=== PATIENT | female | born 1940 | race Caucasian/White ===

== ENCOUNTER → 2016-12-08 | Outpatient (CLI) | payer MEDICARE, BC ==
[~2016-12-08] MED LIST: ALB0.5V INH; ASP325T PO; ASPI-266 PO; ATOR40TA; ATOR80TA PO; CATHETER FLUSH 10 ML SYR IV PRN; CEFD300C PO; CHOL100011 PO; CLD600T PO; CLOP75TA PO; CYAN100071 PO; FENO135C PO; FOLI0.4T2 PO; FOLI0.8T PO; FURO20TA4 PO; GLYB1.253 PO; GLYB2.5T4 PO; HYDR-3816 PO; HYZAAR; LEVO75TA6 PO; LOSA1TAB15 PO; LVT.025T PO; LVT.05T PO; LVT.1T PO; METO-272 PO; METO25TA PO; MULT-608 PO; NIA500ERT PO; OMEG1CAP58 PO; PGLT30T; PNT40TEC PO; POTA10CA43 PO; REGADENOSON 0.4 MG/5 ML SYR (LEXISCAN) IV ONE; SIMV80TA3 PO; SITA100T PO; TRAV5DRO OU; TRAV5DRO2 OP
[2016-12-08 12:48] VITALS: BP 155/79
--- NOTE | 2016-12-09 08:06 | ECHOCARDIOGRAPHY REPORT ---
PROCEDURE PHYSICIAN: SERGO ENCARNACION DATE OF PROCEDURE: 12/08/2016 TWO DIMENSIONAL ECHOCARDIOGRAM REPORT PRIMARY PHYSICIAN: OTHER PHYSICIAN: REFERRING PHYSICIAN: Dr. Ana Cristina Gonzalez ORDERING PHYSICIAN: INDICATION FOR THE PROCEDURE: Coronary artery disease. MEASUREMENTS DERIVED VALUES LV DIAMETER (LAX) NORMALS NORMALS Diastolic 4.6 (3.6-5.2) Eject. Fract. 60% (60%+/-6%) Systolic (2.3-3.9) Diastolic Vol. % Shortening (0.22-0.42) Systolic Vol. Aortic Root IVS THICKNESS Diastolic 1.3 (0.6-1.1) LVPW THICKNESS Diastolic 1.3 (0.6-1.1) LA DIAMETER Systolic 4.1 (2.1-3.7) FINDINGS: 1. Technical quality is good. 2. The left ventricle is normal in size with normal contractility. Systolic function appeared to be normal. Estimated ejection fraction 60%. 3. The left atrium is mildly dilated. No clot or thrombus were seen within the left atrium. 4. The right atrium and right ventricle are normal in size. No clot or thrombus were seen within the right side. 5. Mitral valve is normal in morphology with mild mitral regurgitation noted by color Doppler flow. No mitral valve prolapse. No mitral valve stenosis. 6. Aortic valve is trileaflet with normal opening and closing pattern. No significant aortic stenosis or regurgitation was seen. 7. Tricuspid valve is normal in morphology with mild tricuspid regurgitation noted by color Doppler flow. Doppler across tricuspid valve estimated pulmonary artery pressure of 27+ right atrial pressure. 8. Pulmonic valve is functioning normally. 9. No pericardial effusion. CONCLUSION: 1. Normal left ventricular size with mild left ventricular hypertrophy noted diffusely. Systolic function appeared to be normal. Estimated ejection fraction 60%. 2. Mildly dilated left atrium. 3. Mild mitral and tricuspid regurgitation. 4. Estimated pulmonary artery pressure of 35 mmHg. Job ID: [id number] Dictated Date: 12/08/2016 15:49:56 Sergeant At Arms Date: 12/09/2016 07:49:20 / shameka
--- NOTE | 2016-12-09 09:32 | STRESS TEST ---
PROCEDURE PHYSICIAN: SERGO ENCARNACION DATE OF PROCEDURE: 12/08/2016 LEXISCAN MYOVIEW STRESS TEST REPORT: REFERRING PHYSICIAN: Dr. Gonzalez. INDICATION FOR THE PROCEDURE: 1. Coronary artery disease. 2. Hypertension. BASELINE HEART RATE: 60 BASELINE BLOOD PRESSURE: 155/79 BASELINE EKG: Sinus rhythm with occasional PVCs. IN SUMMARY: The patient was injected with 10.93 mCi of technetium 99 Myoview and the resting images were obtained. Then the patient received 0.4 mg of Lexiscan followed by 29.7 mCi of technetium 99 Myoview. Throughout the test there were no EKG changes. The resting and stress images were reviewed and compared in the short axis, horizontal long axis, and vertical long axis views. Review of the images showed breast attenuation with reversible ischemia involving the mid to apical anterolateral wall and inferolateral wall. SSS is 10, SDS 6, TID value 1.02. On the gated images, the left ventricle appeared to be normal size with normal contractility. Calculated ejection fraction 57%. IN CONCLUSION: 1. The patient tolerated Lexiscan well. 2. Breast attenuation affecting the quality of the images with reversible ischemia involving the mid to apical anterolateral wall and inferolateral wall. 3. Normal left ventricular size with normal contractility. Calculated ejection fraction 57%. Job ID: [id number] Dictated Date: 12/08/2016 16:18:32 Roll Coverer Date: 12/09/2016 09:28:24 / shameka
== END ==
LOC: CARD 09:35
PROVIDERS: ATTEND Physician Assistant
DX: I25.10 Atherosclerotic heart disease of native coronary artery without angina pectoris (principal); I65.23 Occlusion and stenosis of bilateral carotid arteries; I10 Essential (primary) hypertension; E78.2 Mixed hyperlipidemia
CPT/HCPCS: 78452; 93017; 93306

== ENCOUNTER 2017-03-30 10:42 | Day surgery (SDC) | payer MEDICARE, BC ==
[~2017-03-30] VITALS: Ht 167.6 cm; Wt 103.7 kg
[2017-03-30] VITALS (11 sets, daily range): BP systolic 121–163; BP diastolic 58–77
[~2017-03-30 10:42] MED LIST changes: -CATHETER FLUSH 10 ML SYR IV PRN; -GLYB2.5T4 PO; -REGADENOSON 0.4 MG/5 ML SYR (LEXISCAN) IV ONE
[2017-03-30] MEDS ORDERED: NS IV 1000 ML 1,000 ML ONE (10:46)
[2017-03-30] MEDS ORDERED: LIDOCAINE 1% INJ 20 ML (XYLOCAINE) VIAL ONE (10:46)
[2017-03-30] MEDS ORDERED: HEParin (CATH LAB) 2,000 ML IV ONE (10:46)
[2017-03-30] MEDS ORDERED: NS IV 1000 ML 1,000 ML IV SCH ×2 (11:15→13:37)
[2017-03-30 11:22] LABS: MEAN PLATELET VOLUME 11.5 FL (7.4-10.4); RED BLOOD COUNT 3.77 10^6/uL (4.35-5.85); WHITE BLOOD COUNT 5.4 10^3/uL (4.3-11.0)
[2017-03-30 11:26] LABS: PROTHROMBIN TIME PATIENT 13.3 SEC (12.2-14.7)
--- NOTE | 2017-03-30 11:36 | Diagnostic Imaging Report ---
INDICATION: Coronary artery disease, preop for catheterization. PA chest obtained at 11:17 a.m. and compared to 10/30/14. FINDINGS: Patient has had previous sternotomy. The heart is borderline in size. Aorta is tortuous. Patient has had previous coronary bypass. There is no acute infiltrate or pneumothorax or pleural fluid. IMPRESSION: Poststernotomy change with borderline heart size. No focal infiltrate or pneumothorax or pleural fluid. Dictated by: Dictated on workstation # [id number]
[2017-03-30 11:38] LABS: ALBUMIN 4.3 G/DL (3.2-4.5); BILIRUBIN,TOTAL 0.5 MG/DL (0.1-1.0); CALCIUM 9.7 MG/DL (8.5-10.1); CREATININE SERUM 1.1 MG/DL (0.60-1.30); POTASSIUM 4.3 MMOL/L (3.6-5.0); TOTAL PROTEIN 7.8 G/DL (6.4-8.2)
[2017-03-30] MEDS ORDERED: GLYB2.5T4 PO (11:41)
--- NOTE | 2017-03-30 12:03 | Cardiac Procedure Note-CS/ASA ---
Pre-Procedure Note Pre-Op Procedure Note H&P Reviewed The H&P was reviewed, patient examined and no changes noted. Date H&P Reviewed: March 30, 2017 Time H&P Reviewed: 12:03 Conscious Sedation Pre-Proced Time Reviewed: 12:03 ASA Class: 3 Airway Mallampati Classification: ([place] appropriate class) I. II. III, IV Lungs Heart ASA score ASA 1: a normal healthy patient ASA 2: a patient with a mild systemic disease (mid diabetes, controlled hypertension, obesity x ASA 3: a patient with a severe systemic disease that limits activity (angina , COPD, prior Myocardial infarction) ASA 4: a patient with an incapacitating disease that is a constant threat to life (CHF, renal failure) ASA 5: a moribund patient not expected to survive 24 hrs. (ruptured aneurysm) ASA 6: a declared brain patient whose organs are being harvested. For emergent operations, add the letter E after the classification Grade 3 Sedation Plan: Analgesia, Amnesia, Plan communicated to team members, Discussed options with patient/fam, Discussed risks with patient/fam Note The patient is an appropriate candidate to undergo the planned procedure, sedation, and anesthesia. The patient immediately re-assessed prior to indication. SERGO ENCARNACION MD March 30, 2017 12:03
[2017-03-30] MEDS ORDERED: fentaNYL INJECTION 100 MCG/2 ML AMP ONE (12:34)
[2017-03-30] MEDS ORDERED: MIDAZOLAM 5 MG/5 ML (VERSED) VIAL ONE (12:34)
[2017-03-30] MEDS ORDERED: PATIENT MAY USE OWN MEDS, ALL PO SCH (13:45)
--- NOTE | 2017-03-30 14:40 | Discharge Inst-Post CATH ---
Discharge Inst-CATH Post Cardiac Cath D/C Inst Follow Up/Plan Appointment with Dr Rogel's office in 2 weeks CARDIAC CATH DISCHARGE INSTRUCTIONS *Hold Metformin for 48 hours post heart cath. ACTIVITY * Go Home directly and rest. * Limit activity of the leg (or wrist if it was used) for 7 days including aerobics, swimming, jogging, bicycling, etc. * Restrict stair-climbing for 7 days if possible, if not, climb up with your non -cath leg, then bring together on the same step. * Avoid lifting, pushing, pulling or excessive movement of the affected extremity for 7 days. * Customary sexual activity may be resumed after 2 days-use caution not to use a position that strains or causes pain to the affected extremity. * No driving for 24 hours. * NO SMOKING. * Avoid straining for bowel movements for 7 days. * Gentle walking on level ground is allowed. * Returning to work will depend on the type of procedure and the results. Your doctor will discuss this with you. CALL YOUR DOCTOR FOR ANY OF THE FOLLOWING: *If bleeding from the puncture site occurs- Apply gentle pressure to site with clean cloth and call your doctor or EMS. * If a knot or lump forms under the skin, increases in size, or causes pain. * If bruising appears to be worsening or moving further down your leg instead of disappearing. * Temperature above 101 F. CARE OF YOUR GROIN INCISION; * Bruising or purple discoloration of the skin near the puncture site is common. * You may shower only, no bathtub bathing for 5 days. Be careful to avoid slipping as your leg may feel stiff. * If a closure device was used on your femoral artery, please see the attached guide regarding care of the device and your leg. * REMOVE the dressing from your groin the next day after your procedure in the shower. CARE OF YOUR WRIST INCISION; * Bruising or purple discoloration of the skin near the puncture site is common. * You may shower. * DO NOT submerge wrist. * Remove dressing in 24 hours. SERGO ROGEL MD March 30, 2017 14:40
--- NOTE | 2017-03-31 08:36 | CARDIAC CATHETERIZATION ---
DATE OF SERVICE: 03/30/2017 PROCEDURE: CARDIAC CATHETERIZATION REFERRING PROVIDER: WILLIAMS Velez. BRIEF HISTORY: The patient is a 76-year-old lady with history of coronary artery disease, history of CABG, peripheral arterial disease. The patient had an abnormal stress test. She was scheduled for left heart catheterization, possible PTCA. PROCEDURE NOTE: After explaining the procedure to the patient all pros and cons were explained and all questions were answered. The patient signed a consent and then we proceeded with cardiac catheterization. The right groin was prepped in a sterile fashion. Local anesthesia was applied to the right groin. I had difficulty advancing the sheath through the right groin. Angiogram showed atherosclerotic plaque in the right common femoral artery. A combination of right and left Nora catheters were used to access the right and left groin system. Multiple views were obtained. Nora right catheter was used to access the vein graft and the internal mammary artery. Angiogram was done. Then a pigtail catheter was advanced to the left ventricular cavity. Pressure was measured. Pullback LV to aorta was done and pressure was measured. Then abdominal aortogram with bilateral runoff of the lower extremities was done. At that point I noted that there is severe stenosis at the lower extremities and the left renal artery. I was unable to cross using the pigtail catheter with a Stork wire. I removed the pigtail and attempted to cross with the Nora right without success. I used the Nora right to intubate the left renal artery and selective left renal angiogram was done. Then I used a rim catheter and crossed over to the proximal left common iliac. Runoff to the left lower extremity was done in multiple views. Then the Rim catheter was removed and I did runoff to the right lower extremity through the sheath with multiple injections at multiple levels. At that point I decided to remove the sheath and manual pressure was applied. Hemostasis was achieved. Total contrast used was 112 mL. Total radiation dose is 725 mCi. ANATOMY: The left main coronary artery has 70% distal stenosis and calcified artery. The left anterior descending artery is moderate in size with no significant obstructive disease. The PATEL to the LAD is patent with competitive flow through the limb. The left circumflex is moderate in size. The vein graft to the circumflex artery is known to be occluded. The right coronary artery has proximal stent with mild disease, nonobstructive disease. The vein graft to the right coronary is known to be occluded. VEIN GRAFT ANGIOGRAM: Two vein grafts were evaluated and they are both occluded. PATEL ANGIOGRAM: Evaluation of the PATEL showed slow flow with competitive flow through the [place] artery and nonobstructive disease. There is significant tortuosity in the subclavian artery. ABDOMINAL AORTOGRAM WITH BILATERAL RUNOFF: The abdominal aortogram with bilateral runoff showed atherosclerotic disease in the abdominal aorta. The left renal artery appeared to have severe stenosis which was proven to be mild to moderate by selective angiogram. The left lower extremity has severe stenosis. The right lower extremity has moderate disease. LEFT LOWER EXTREMITY RUNOFF: Was done at multiple injections. There is total occlusion of the left superficial femoral artery at its ostium down to the trifurcation with slow flow beyond the trifurcation. The profunda is patent. RIGHT LOWER EXTREMITY RUNOFF: The right lower extremity angiogram was done at multiple segments and multiple imaging. It showed moderate disease. There is heavy plaque at the right common femoral artery and nonobstructive disease. Below the knee there is good flow. CONCLUSION: 1. Severe disease at the distal left main with patent left internal mammary artery to the left anterior descending artery, occluded vein graft to the circumflex artery. 2. Patent stent in the proximal right coronary artery with occluded vein graft to the right coronary artery. Mild to moderate disease in the mid right coronary artery, nonobstructive disease. 3. Atherosclerotic disease in the abdominal aorta with no aneurysm or dissection. 4. Severe peripheral arterial disease at the left lower extremity with total occlusion of the left SFA at its origin down to the trifurcation. 5. Mild to moderate disease in the right lower extremity. 6. Selective left renal angiogram showed 40 to 50% mid left renal artery stenosis nonobstructive disease. DISCUSSIONS/RECOMMENDATIONS: 1. Regarding the coronary anatomy I recommend medical therapy. 2. For the peripheral arterial disease the patient will need to have peripheral evaluation and possible intervention on the left lower extremity. 3. I will continue maximizing medical therapy. FINAL DIAGNOSES: 1. Coronary artery disease. 2. Peripheral arterial disease. 3. Hypertension. 4. Hyperlipidemia. Job ID: [id number] DocumentID: [id number] Dictated Date: 03/30/2017 13:45:49 Marker Hand Date: 03/30/2017 22:18:11 Dictated By: SERGO ENCARNACION MD
== END 2017-03-30 17:54 | disposition home or self-care (01) ==
LOC: CATH 10:42
PROVIDERS: ATTEND Internal Medicine Cardiovascular Disease
DX: R94.39 Abnormal result of other cardiovascular function study (principal); I25.10 Atherosclerotic heart disease of native coronary artery without angina pectoris; I25.84 Coronary atherosclerosis due to calcified coronary lesion; I25.82 Chronic total occlusion of coronary artery; T82.857D Stenosis of other cardiac prosthetic devices, implants and grafts, subsequent encounter; I70.203 Unspecified atherosclerosis of native arteries of extremities, bilateral legs; I70.92 Chronic total occlusion of artery of the extremities; I70.0 Atherosclerosis of aorta; I70.1 Atherosclerosis of renal artery; I10 Essential (primary) hypertension; E78.5 Hyperlipidemia, unspecified; E11.9 Type 2 diabetes mellitus without complications; E03.9 Hypothyroidism, unspecified; E66.9 Obesity, unspecified; Z68.37 Body mass index [BMI] 37.0-37.9, adult; Z79.84 Long term (current) use of oral hypoglycemic drugs; Z87.891 Personal history of nicotine dependence; Z79.899 Other long term (current) drug therapy
CPT/HCPCS: 36251; 36415; 71010; 75630; 80053; 80061; 85027; 85610; 85730; 87081; 93005; 93459

== ENCOUNTER 2017-04-18 06:51 | Day surgery (SDC) | payer MEDICARE, BC ==
[~2017-04-18] VITALS: Ht 167.6 cm; Wt 104.3 kg
[2017-04-18] VITALS (20 sets, daily range): BP systolic 108–172; BP diastolic 46–88
[~2017-04-18 06:51] MED LIST changes: +GLYB2.5T4 PO
[2017-04-18] MEDS ORDERED: NS IV 1000 ML 1,000 ML ONE ×2 (06:58→08:57)
[2017-04-18] MEDS ORDERED: LIDOCAINE 1% INJ 20 ML (XYLOCAINE) VIAL ONE (06:58)
[2017-04-18] MEDS ORDERED: HEParin (CATH LAB) 2,000 ML IV ONE (06:58)
[2017-04-18] MEDS ORDERED: NS IV 1000 ML 1,000 ML IV SCH ×2 (07:06→07:15)
--- NOTE | 2017-04-18 07:26 | Diagnostic Imaging Report ---
CLINICAL INDICATION: Precath for peripheral angiography with possible peripheral angioplasty/stent. Patient with no chest complaints. EXAM: Portable chest x-ray upright view. Comparisons: Chest x-ray dated 03/30/2017. Findings: Lungs/pleura: Lungs are clear. There is no pneumothorax. There is no pleural effusion. Mediastinum: Unremarkable. Pulmonary vasculature: Unremarkable. Heart: Stable postop changes to the chest with sternotomy wires and mediastinal clips. Heart size is stable and upper limits of normal for portable projection. Bones/extrathoracic soft tissue: Unremarkable. IMPRESSION: Stable chest x-ray exam with no interval radiographic evidence of acute cardiopulmonary process. Dictated by: Dictated on workstation # [id number]
[2017-04-18 07:31] LABS: RED BLOOD COUNT 3.67 10^6/uL (4.35-5.85); WHITE BLOOD COUNT 5.7 10^3/uL (4.3-11.0)
[2017-04-18 07:32] LABS: MEAN PLATELET VOLUME 11.8 FL (7.4-10.4); RED CELL DISTRIBUTION WIDTH 12.8 % (10.0-14.5)
[2017-04-18 07:37] LABS: BILIRUBIN,URINE NEGATIVE (NEGATIVE); KETONES,URINE NEGATIVE (NEGATIVE); LEUKOCYTE ESTERASE ,URINE 3+ (NEGATIVE); NITRITE,URINE NEGATIVE (NEGATIVE); PH,URINE 6 (5-9); PROTEIN,URINE NEGATIVE (NEGATIVE); UROBILINOGEN,URINE NORMAL (NORMAL)
[2017-04-18] MEDS ORDERED: CLOP75TA69 PO (07:37)
[2017-04-18 07:40] LABS: PROTHROMBIN TIME PATIENT 13.3 SEC (12.2-14.7)
[2017-04-18 07:45] LABS: WBC,URINE 50-100 /HPF
--- NOTE | 2017-04-18 07:53 | Cardiac Procedure Note-CS/ASA ---
Pre-Procedure Note Pre-Op Procedure Note H&P Reviewed The H&P was reviewed, patient examined and no changes noted. Date H&P Reviewed: April 18, 2017 Time H&P Reviewed: 07:52 Conscious Sedation Pre-Proced Time Reviewed: 07:52 ASA Class: 3 Airway Mallampati Classification: ([place] appropriate class) I. II. III, IV Lungs Heart ASA score ASA 1: a normal healthy patient ASA 2: a patient with a mild systemic disease (mid diabetes, controlled hypertension, obesity x ASA 3: a patient with a severe systemic disease that limits activity (angina , COPD, prior Myocardial infarction) ASA 4: a patient with an incapacitating disease that is a constant threat to life (CHF, renal failure) ASA 5: a moribund patient not expected to survive 24 hrs. (ruptured aneurysm) ASA 6: a declared brain patient whose organs are being harvested. For emergent operations, add the letter E after the classification Grade 3 Sedation Plan: Analgesia, Amnesia, Plan communicated to team members, Discussed options with patient/fam, Discussed risks with patient/fam Note The patient is an appropriate candidate to undergo the planned procedure, sedation, and anesthesia. The patient immediately re-assessed prior to indication. SERGO ENCARNACION MD April 18, 2017 07:52
[2017-04-18 07:54] LABS: ALBUMIN 4.2 G/DL (3.2-4.5); BILIRUBIN,TOTAL 0.3 MG/DL (0.1-1.0); CALCIUM 9.7 MG/DL (8.5-10.1); CREATININE SERUM 1.56 MG/DL (0.60-1.30); POTASSIUM 4.2 MMOL/L (3.6-5.0); TOTAL PROTEIN 8.1 G/DL (6.4-8.2)
[2017-04-18] MEDS ORDERED: HEParin 1000 UNIT/ML (10ML VIAL) FOR BOLUS ONE (07:58)
[2017-04-18] MEDS ORDERED: NITROGLYCERIN DRIP 25 MG/D5W 250 ML IV ONE (07:58)
[2017-04-18] MEDS ORDERED: fentaNYL INJECTION 100 MCG/2 ML AMP ONE ×2 (07:58→09:11)
[2017-04-18] MEDS ORDERED: MIDAZOLAM 5 MG/5 ML (VERSED) VIAL ONE (07:58)
[2017-04-18] MEDS ORDERED: MIDAZOLAM 2 MG/2 ML (VERSED) VIAL ONE (09:11)
[2017-04-18] MEDS ORDERED: ENALAPRILAT 2.5 MG/2 ML (VASOTEC) VIAL IV ONE (10:24)
[2017-04-18] MEDS ORDERED: ASPIRIN 325 MG (5 GR) TABLET ONE (10:34)
[2017-04-18] MEDS ORDERED: CLOPIDOGREL 300 MG (PLAVIX) TABLET PO ONE (10:34)
[2017-04-18] MEDS ORDERED: PATIENT MAY USE OWN MEDS, ALL PO SCH (10:45)
[2017-04-18] MEDS: NS IV 1000 ML 1,000 ML IV SCH ×2 (13:28→20:36)
[2017-04-18] MEDS ORDERED: LATANOPROST 0.005% (XALATAN) OPHTH SOLN 2.5 ML OU SCH (21:00)
[2017-04-18] MEDS ORDERED: ATORVASTATIN 80 MG (LIPITOR) TABLET PO SCH (21:00)
[2017-04-18] MEDS ORDERED: ASPIRIN E.C. 81 MG (ECOTRIN) TAB PO SCH (21:00)
[2017-04-18] MEDS ORDERED: meTOproloL SUCCINATE 50 MG (TOPROL XL) TAB PO SCH (21:00)
[2017-04-18] MEDS ORDERED: OMEGA-3 ACID ETHYL ESTERS 1 GM (LOVAZA) NON-FORMULARY PO SCH (21:00)
[2017-04-18] MEDS ORDERED: glyBURIDE 2.5 MG (MICRONASE) TAB PO SCH (21:00)
[2017-04-19] VITALS: BP 131/62
--- NOTE | 2017-04-19 00:25 | DISCHARGE SUMMARY ---
DATE OF SERVICE: 04/18/2017 REFERRING PHYSICIAN: WILLIAMS Tong. BRIEF HISTORY: The patient is a 76-year-old lady with peripheral arterial disease, total occlusion of the SFA that was noted during cardiac catheterization, has underlying renal insufficiency and I elected to postpone the procedure. The patient continued to have pain and weakness in her left leg, had an abnormal ANUSHKA. She was scheduled for peripheral angiogram. PROCEDURE NOTE: After explaining the procedure to the patient, all pros and cons were explained, all questions were answered, the patient signed consent and she was placed in the cardiac catheterization laboratory. The right groin was prepped in a sterile fashion. Local anesthesia applied to the right groin. A 6-American sheath was placed in the right femoral artery. I used the rim catheter to cross over. I was unable to cross it with a Storq wire. I used a Glidewire and with difficulties, I advanced the Glidewire, then advanced short straight catheter to the distal common femoral artery. Exchanged the Glidewire to Storq wire. The patient was given 5,000 units of heparin followed by 3,000 units of heparin. I was unable to cross the total occlusion of the SFA with a Storq wire. I removed the Storq wire and advanced command wire, advanced it half way in the SFA. I was unable to advance it any further. I thought about exchanging the straight catheter into mini catheter. After removing the straight catheter, the mini catheter was unable to advance through the bifurcation. Subsequently, I lost the wire position. I removed the mini catheter and the Command wire and readvanced a rim catheter, advanced a Glidewire, exchanged the rim catheter into a straight catheter, then I advanced the Storq wire into the profunda. Then removed the straight catheter and exchanged into long 45, 7-American sheath, advanced it to the common femoral artery. At that point, through the sheath, I advanced the mini catheter and command wire. I was able to advance the mini catheter down to the mid SFA. Then I did injection in the mini catheter, established good positioning and then exchanged the wire into a Viper Wire. The Viper wire was advanced to the peroneal artery. Then I used CSI at low speed, 60,000 RPM, to the proximal and then 90,000 at mid speed, then reintroduced it to the mid portion of the SFA. Also one run. Angiography showed improvement but heavy calcification in that artery. I proceeded with balloon dilatation using Aurora 5.0 x 200 with multiple inflations. Then I used Lutonix drug-coated balloon to the popliteal artery, 5.0 inflated with good result, then I deployed 2 superior stents overlapping, 5.5 x 150 and 5.5 x 150. Did not cover the ostium of the SFA, which was having significant recoil and heavy calcification so I proceeded with placement of a new stent. I was able to put an Absolute Pro deployed carefully at the ostium of the SFA and overlapping with the superior stent using 7 mm x 80 mm. Angiogram showed excellent result. Distal to the distal stent, there was dissection with recoiling, so I proceeded with deployment of another superior 5.5 x 100 after prepping the artery with 5.5 balloon and overlapping with the previous stent. We ended up with stenting from the ostium of the SFA down to the mid popliteal artery. Angiogram post-intervention showed excellent results. No residual stenosis and good flow down to the foot. Total contrast used: Was 104 Omnipaque. Total radiation dose: Was 1,017 mGy. Then I exchanged the sheath into a short 7-American sheath and put a pigtail into the abdominal aorta. Abdominal aortogram was done showing no complications. The sheath was removed, Mynx device deployed. Hemostasis achieved. CONCLUSION: Total occlusion to the left superficial femoral artery with complex intervention as described above with deployment of 4 stents. At the ostium I used: 1. Absolute Pro stent 7 x 80 overlapping with 2 superior stents 5.5 x 150. 2. Then distally at the popliteal artery drug coated balloon followed by deployment of a superior stent due to dissection in that artery using 5.5 x 100 with excellent results. DISCUSSION AND RECOMMENDATIONS: I will continue maximizing medical therapy. FINAL DIAGNOSES: 1. Claudication. 2. Peripheral arterial disease. 3. Hypertension. 4. Hyperlipidemia. 5. Coronary artery disease. Job ID: [id number] DocumentID: [id number] Dictated Date: 04/18/2017 10:42:05 Advanced Quality Engineer Date: 04/18/2017 12:24:22 Dictated By: SERGO ENCARNACION MD
[2017-04-19] MEDS: NS IV 1000 ML 1,000 ML IV SCH ×2 (00:39→06:26)
[2017-04-19 04:00] VITALS: BP 139/81
[2017-04-19 04:31] LABS: RED BLOOD COUNT 3.16 10^6/uL (4.35-5.85); RED CELL DISTRIBUTION WIDTH 12.6 % (10.0-14.5); WHITE BLOOD COUNT 5.6 10^3/uL (4.3-11.0)
[2017-04-19 04:51] LABS: ANION GAP 11 MMOL/L (5-14); BLOOD UREA NITROGEN 28 MG/DL (7-18); BUN/CREATININE RATIO 33; CALCIUM 9.1 MG/DL (8.5-10.1); CARBON DIOXIDE 21 MMOL/L (21-32); CHLORIDE 107 MMOL/L (98-107); CREATININE SERUM 0.85 MG/DL (0.60-1.30); GFR ESTIMATED > 60; GLUCOSE 124 MG/DL (70-105); SODIUM 139 MMOL/L (135-145)
[2017-04-19] MEDS ORDERED: LEVOTHYROXINE 75 MCG (LEVOTHROID) TABLET PO SCH (05:00)
--- NOTE | 2017-04-19 07:26 | Cardiology Post Procedure Note ---
Post-Procedure Note Post-Op Procedure Note Procedure Start Date: April 18, 2017 Name of Procedure: DATE OF SERVICE: 04/18/2017 REFERRING PHYSICIAN: WILLIAMS Tong. BRIEF HISTORY: The patient is a 76-year-old lady with peripheral arterial disease, total occlusion of the SFA that was noted during cardiac catheterization, has underlying renal insufficiency and I elected to postpone the procedure. The patient continued to have pain and weakness in her left leg, had an abnormal ANUSHKA. She was scheduled for peripheral angiogram. PROCEDURE NOTE: After explaining the procedure to the patient, all pros and cons were explained, all questions were answered, the patient signed consent and she was placed in the cardiac catheterization laboratory. The right groin was prepped in a sterile fashion. Local anesthesia applied to the right groin. A 6-[place] sheath was placed in the right femoral artery. I used the rim catheter to cross over. I was unable to cross it with a Storq wire. I used a Glidewire and with difficulties, I advanced the Glidewire, then advanced short straight catheter to the distal common femoral artery. Exchanged the Glidewire to Storq wire. The patient was given 5,000 units of heparin followed by 3,000 units of heparin. I was unable to cross the total occlusion of the SFA with a Storq wire. I removed the Storq wire and advanced command wire, advanced it half way in the SFA. I was unable to advance it any further. I thought about exchanging the straight catheter into mini catheter. After removing the straight catheter, the mini catheter was unable to advance through the bifurcation. Subsequently, I lost the wire position. I removed the mini catheter and the Command wire and readvanced a rim catheter, advanced a Glidewire, exchanged the rim catheter into a straight catheter, then I advanced the Storq wire into the profunda. Then removed the straight catheter and exchanged into long 45, 7-[place] sheath, advanced it to the common femoral artery. At that point, through the sheath, I advanced the mini catheter and command wire. I was able to advance the mini catheter down to the mid SFA. Then I did injection in the mini catheter, established good positioning and then exchanged the wire into a Viper Wire. The Viper wire was advanced to the peroneal artery. Then I used CSI at low speed, 60,000 RPM, to the proximal and then 90,000 at mid speed, then reintroduced it to the mid portion of the SFA. Also one run. Angiography showed improvement but heavy calcification in that artery. I proceeded with balloon dilatation using [place] 5.0 x 200 with multiple inflations. Then I used Lutonix drug-coated balloon to the popliteal artery, 5.0 inflated with good result, then I deployed 2 superior stents overlapping, 5.5 x 150 and 5.5 x 150. Did not cover the ostium of the SFA, which was having significant recoil and heavy calcification so I proceeded with placement of a new stent. I was able to put an Absolute Pro deployed carefully at the ostium of the SFA and overlapping with the superior stent using 7 mm x 80 mm. Angiogram showed excellent result. Distal to the distal stent, there was dissection with recoiling, so I proceeded with deployment of another superior 5.5 x 100 after prepping the artery with 5.5 balloon and overlapping with the previous stent. We ended up with stenting from the ostium of the SFA down to the mid popliteal artery. Angiogram post-intervention showed excellent results. No residual stenosis and good flow down to the foot. Total contrast used: Was 104 Omnipaque. Total radiation dose: Was 1,017 mGy. Then I exchanged the sheath into a short 7-[place] sheath and put a pigtail into the abdominal aorta. Abdominal aortogram was done showing no complications. The sheath was removed, Mynx device deployed. Hemostasis achieved. CONCLUSION: Total occlusion to the left superficial femoral artery with complex intervention as described above with deployment of 4 stents. At the ostium I used: Absolute Pro stent 7 x 80 overlapping with 2 superior stents 5.5 x 150. Then distally at the popliteal artery drug coated balloon followed by deployment of a superior stent due to dissection in that artery using 5.5 x 100 with excellent results. Anesthesia Type: Conscious Sedation Post-Operative Diagnosis Post-operative diagnosis: Claudication Peripheral arterial disease Coronary artery disease Hypertension Hyperlipidemia SERGO ENCARNACION MD April 19, 2017 07:26
--- NOTE | 2017-04-19 07:35 | Cardiology Progress Note ---
Subjective Subjective/Events-last exam patient is feeling well, dorsalis pedis pulse is palpable, doing well. Groin is healing well. No pain, no bruising Review of Systems General: No Chills, No Night Sweats, No Fatigue, No Malaise, No Appetite, No Other HEENT: No Head Aches, No Visual Changes, No Eye Pain, No Ear Pain, No Dysphasia , No Sinus Congestion, No Post Nasal Drip, No Sore Throat, No Other Pulmonary: No Dyspnea, No Cough, No Pleuritic Chest Pain, No Other Cardiovascular: No: Chest Pain, Edema, Lt Headedness, Orthopnea, Other, Palpitations, Paroxysmal Noc. Dyspnea Objective-Cardiology Exam Last Set of Vital Signs Vital Signs 04/18/17 04/19/17 20:00 04:00 Temp 98.1 Pulse 59 Resp 16 B/P (MAP) 139/81 Pulse Ox 97 Capillary Refill : Less Than 3 Seconds General: Alert, Oriented X3, Cooperative HEENT: Atraumatic, PERRLA Neck: Supple, No JVD, No Thyromegaly Lungs: Clear to Auscultation, Normal Air Movement Heart: Regular Rate, Normal S1, Normal S2, No Murmurs Abdomen: Normal Bowel Sounds, Soft, No Tenderness, No Hepatosplenomegaly, No Masses Extremities: No Clubbing, No Cyanosis, No Edema, Normal Pulses, No Tenderness/ Swelling Skin: No Rashes, No Breakdown, No Significant Lesion Neuro: Normal Gait, Normal Speech, Strength at 5/5 X4 Ext, Normal Tone, Sensation Intact Psych/Mental Status: Mental Status NL, Mood NL Results Lab Laboratory Tests 04/19/17 04:00 A/P-Cardiology Admission Diagnosis claudications Peripheral arterial disease Hypertension Coronary artery disease Hyperlipidemia Assessment/Plan Peripheral tears disease, total occlusion of the left SFA, status post atherectomy then balloon angioplasty then deployment of 4 stents to the left SFA with excellent results, excellent flow down to the foot. Claudications, continue to monitor symptoms Coronary artery disease, clinically stable continue to monitor Hypertension, continue current medications and monitor Hyperlipidemia, continue on current medications and monitor UTI, asymptomatic, I will treat her with Bactrim as an outpatient SERGO ENCARNACION MD April 19, 2017 07:34
[2017-04-19] MEDS ORDERED: SULF1TAB35 PO ×2 (07:38→07:39)
--- NOTE | 2017-04-19 07:40 | Discharge Inst-Post CATH ---
Discharge Inst-CATH Post Cardiac Cath D/C Inst Follow Up/Plan Appointment with Dr. Rogel's office in 2-4 weeks CARDIAC CATH DISCHARGE INSTRUCTIONS *Hold Metformin for 48 hours post heart cath. ACTIVITY * Go Home directly and rest. * Limit activity of the leg (or wrist if it was used) for 7 days including aerobics, swimming, jogging, bicycling, etc. * Restrict stair-climbing for 7 days if possible, if not, climb up with your non -cath leg, then bring together on the same step. * Avoid lifting, pushing, pulling or excessive movement of the affected extremity for 7 days. * Customary sexual activity may be resumed after 2 days-use caution not to use a position that strains or causes pain to the affected extremity. * No driving for 24 hours. * NO SMOKING. * Avoid straining for bowel movements for 7 days. * Gentle walking on level ground is allowed. * Returning to work will depend on the type of procedure and the results. Your doctor will discuss this with you. CALL YOUR DOCTOR FOR ANY OF THE FOLLOWING: *If bleeding from the puncture site occurs- Apply gentle pressure to site with clean cloth and call your doctor or EMS. * If a knot or lump forms under the skin, increases in size, or causes pain. * If bruising appears to be worsening or moving further down your leg instead of disappearing. * Temperature above 101 F. CARE OF YOUR GROIN INCISION; * Bruising or purple discoloration of the skin near the puncture site is common. * You may shower only, no bathtub bathing for 5 days. Be careful to avoid slipping as your leg may feel stiff. * If a closure device was used on your femoral artery, please see the attached guide regarding care of the device and your leg. * REMOVE the dressing from your groin the next day after your procedure in the shower. CARE OF YOUR WRIST INCISION; * Bruising or purple discoloration of the skin near the puncture site is common. * You may shower. * DO NOT submerge wrist. * Remove dressing in 24 hours. SERGO ROGEL MD April 19, 2017 07:40
[2017-04-19 07:50] VITALS: BP 147/60
[2017-04-19 08:45] VITALS: BP 147/60
[2017-04-19] MEDS ORDERED: CLOPIDOGREL 75 MG (PLAVIX) TABLET PO SCH (09:00)
[2017-04-19] MEDS ORDERED: LOSARTAN PO SCH (09:00)
[2017-04-19] MEDS ORDERED: PANTOPRAZOLE 40 MG (PROTONIX) TAB PO SCH (09:00)
[2017-04-19] MEDS ORDERED: HYDROCHLOROTHIAZIDE PO SCH (09:00)
[2017-04-19] MEDS ORDERED: FENOFIBRATE 134 MG (LOFIBRA) CAPSULE PO SCH (09:00)
== END 2017-04-19 08:45 | disposition home or self-care (01) ==
LOC: CATH 06:51 → ICU 10:50 → CATH 04-19 08:45
PROVIDERS: ATTEND Internal Medicine Cardiovascular Disease
DX: I70.213 Atherosclerosis of native arteries of extremities with intermittent claudication, bilateral legs (principal); I70.92 Chronic total occlusion of artery of the extremities; I25.10 Atherosclerotic heart disease of native coronary artery without angina pectoris; E66.9 Obesity, unspecified; N18.9 Chronic kidney disease, unspecified; I12.9 Hypertensive chronic kidney disease with stage 1 through stage 4 chronic kidney disease, or unspecified chronic kidney disease; E11.22 Type 2 diabetes mellitus with diabetic chronic kidney disease; E78.5 Hyperlipidemia, unspecified; Z68.37 Body mass index [BMI] 37.0-37.9, adult; Z87.891 Personal history of nicotine dependence; Z79.84 Long term (current) use of oral hypoglycemic drugs; Z79.899 Other long term (current) drug therapy; Z95.1 Presence of aortocoronary bypass graft; Z95.5 Presence of coronary angioplasty implant and graft
CPT/HCPCS: 36415; 37227; 71010; 80048; 80053; 80061; 81000; 85027; 85347; 85610; 85730; 87077; 87081; 87088; 87186; 93005